=== PATIENT | female | born 1980 | race Caucasian/White ===

== ENCOUNTER 2018-01-05 08:55 | Emergency (ER) | payer OTHER, MEDICAID ==
[~2018-01-05] VITALS: Ht 154.9 cm; Wt 54.4 kg
[2018-01-05] MEDS ORDERED: ACETAMINOPHEN500 MG PO (09:07)
[2018-01-05] MEDS ORDERED: IBUPROFEN200 M1 PO (09:08)
[2018-01-05] MEDS ORDERED: KETOROLAC TROME10 MG PO (09:44)
== END 2018-01-05 09:51 | disposition home or self-care (01) ==
LOC: ED 08:55
DX: S83.91XA Sprain of unspecified site of right knee, initial encounter (principal); X50.9XXA Other and unspecified overexertion or strenuous movements or postures, initial encounter; Y92.89 Other specified places as the place of occurrence of the external cause
CPT/HCPCS: 73560; 99283